=== PATIENT | male | born 1960 | race Caucasian/White ===

== ENCOUNTER → 2016-11-21 | Outpatient (CLI) | payer BC ==
[~2016-11-21] MED LIST: ASPIRIN 32325 MG/TAB PO; DUO-KAPS1 CAP PO; NORCO 325 MG-101 TA1 PO; RITALIN 20M20 MG/TAB PO; SEROQUEL100 MG PO; ZYRTEC10 MG PO
== END ==
LOC: LAB 16:42
DX: F32.9 Major depressive disorder, single episode, unspecified (principal); Z12.5 Encounter for screening for malignant neoplasm of prostate; E78.2 Mixed hyperlipidemia; N52.03 Combined arterial insufficiency and corporo-venous occlusive erectile dysfunction; R20.2 Paresthesia of skin

== ENCOUNTER → 2018-02-08 | Day surgery (SDC) | payer BC ==
[2015-07-27 16:46] VITALS: BP 120/86
== END ==
LOC: MSO 07:36
DX: K29.50 Unspecified chronic gastritis without bleeding (principal); R13.10 Dysphagia, unspecified; Z87.891 Personal history of nicotine dependence
CPT/HCPCS: 00731; A4649; J2704; J7120

== ENCOUNTER → 2018-11-08 | Outpatient (CLI) | payer MEDICARE, BC ==
[~2018-11-08] VITALS: Ht 170.2 cm; Wt 107.6 kg
[~2018-11-08] MED LIST changes: +ADDERALL 20 MG20 MG PO; +BYSTOLIC10 MG PO; +COLACE100 M1 PO; +CYCLOBENZAPRINE10 M1 PO; +EFFEXOR XR75 M2 PO; +FIBER TABS625 MG PO; +FLOMAX0.4 MG PO; +LIDOCAINE1 EACH TP; +MS CONTIN15 MG PO; +PANTOPRAZOLE SO40 MG PO; +REMERON15 MG PO; +TEMAZEPAM PO; +VENLAFAXINE HYD75 MG PO
[2018-11-08 11:53] VITALS: BP 110/72
[2018-11-08 12:10] LABS: ALBUMIN 4.2 g/dL (3.5-5.0); CALCIUM 9.7 mg/dL (8.4-10.2); POTASSIUM 4.5 mmol/L (3.6-5.0); TOTAL BILIRUBIN 0.4 mg/dL (0.2-1.3)
[2018-11-08 13:41] LABS: HEMATOCRIT 44.8 % (42.0-52.0); MEAN CELL VOLUME 95 fl (78-100); MEAN CORPUSCULAR HEMOGLOBIN 32 pg (27-31); MEAN CORPUSCULAR HGB CONC 34 g/dL (33-37); MEAN PLATELET VOLUME 10.8 fl (7.4-10.4); PLATELET COUNT 299 K/mm3 (130-400); RED BLOOD COUNT 4.73 M/mm3 (4.20-5.60); RED CELL DISTRIBUTION WIDTH 12.6 % (11.5-14.5); WHITE BLOOD COUNT 4.9 K/mm3 (4.8-10.8)
[2018-11-08 15:52] LABS: LYMPHOCYTE 34 % (20-51); MONOCYTE 8 % (3-10); NEUTROPHILS 48 % (42-75)
[2018-11-08 16:10] LABS: ERYTHROCYTE SEDIMENTATION RATE 5 mm/hr (0-20)
[2018-11-09 00:02] LABS: TESTOSTERONE 488 ng/dL (221-716)
== END ==
LOC: AMSURD 11:06
PROVIDERS: Internal Medicine
DX: Z12.5 Encounter for screening for malignant neoplasm of prostate (principal); F33.2 Major depressive disorder, recurrent severe without psychotic features; E78.2 Mixed hyperlipidemia; R73.02 Impaired glucose tolerance (oral); I47.1 Supraventricular tachycardia; Q87.89 Other specified congenital malformation syndromes, not elsewhere classified

== ENCOUNTER → 2019-07-04 | Outpatient (CLI) | payer MEDICARE, BC ==
[~2019-07-04] MED LIST changes: +ACETAMINOPHEN-H1 TA1 PO; +ROBAXIN-750750 MG PO
[2019-07-04 14:00] VITALS: BP 159/91
== END ==
LOC: ED 11:32
DX: Z72.89 Other problems related to lifestyle (principal)

== ENCOUNTER → 2020-05-04 | Outpatient (CLI) | payer MEDICARE, BC ==
[2019-07-04 14:00] VITALS: BP 159/91
[2020-05-04 11:59] LABS: HEMATOCRIT 42.5 % (42.0-52.0); HEMOGLOBIN 14.2 g/dL (13.5-18.0); MEAN CELL VOLUME 96 fl (78-100); MEAN CORPUSCULAR HEMOGLOBIN 32 pg (27-31); MEAN CORPUSCULAR HGB CONC 33 g/dL (33-37); MEAN PLATELET VOLUME 9.4 fl (7.4-10.4); PLATELET COUNT 282 K/mm3 (130-400); RED BLOOD COUNT 4.41 M/mm3 (4.20-5.60)
[2020-05-04 12:04] LABS: POTASSIUM 4.6 mmol/L (3.5-5.1)
[2020-05-04 12:05] LABS: CALCIUM 9.2 mg/dL (8.3-10.5)
[2020-05-04 12:06] LABS: TOTAL PROTEIN 6.7 g/dL (6.4-8.3)
[2020-05-04 12:08] LABS: TOTAL BILIRUBIN 0.3 mg/dL (0.2-1.2)
[2020-05-04 12:22] LABS: NEUTROPHILS 59 % (42-75)
[2020-05-04 12:23] LABS: LYMPHOCYTE 25 % (20-51); MONOCYTE 6 % (3-10)
[2020-05-04 12:59] LABS: ERYTHROCYTE SEDIMENTATION RATE 3 mm/hr (0-20)
== END ==
LOC: LAB 11:43
PROVIDERS: Internal Medicine
DX: Z12.5 Encounter for screening for malignant neoplasm of prostate (principal); Z12.11 Encounter for screening for malignant neoplasm of colon; F33.2 Major depressive disorder, recurrent severe without psychotic features; E78.2 Mixed hyperlipidemia; R73.02 Impaired glucose tolerance (oral); Q87.89 Other specified congenital malformation syndromes, not elsewhere classified; R13.10 Dysphagia, unspecified

== ENCOUNTER → 2020-08-22 | Outpatient (CLI) | payer MEDICARE, BC ==
[2019-07-04 14:00] VITALS: BP 159/91
== END ==
LOC: RAD 10:45
DX: M25.512 Pain in left shoulder (principal)

== ENCOUNTER → 2020-08-30 | Outpatient (CLI) | payer MEDICARE, BC ==
[2019-07-04 14:00] VITALS: BP 159/91
== END ==
LOC: RAD 14:50
DX: M75.121 Complete rotator cuff tear or rupture of right shoulder, not specified as traumatic (principal)

== ENCOUNTER → 2020-11-12 | Outpatient (CLI) | payer MEDICARE, BC ==
[2019-07-04 14:00] VITALS: BP 159/91
[~2020-11-12] MED LIST changes: +FAMOTIDINE 1010 MG PO; +PANTOPRAZOLE SO20 M1 PO; +PRILOSEC2.5 MG/Pac PO
== END ==
LOC: LAB 15:54
DX: N40.1 Benign prostatic hyperplasia with lower urinary tract symptoms (principal)

== ENCOUNTER → 2020-12-03 | Outpatient (CLI) | payer MEDICARE, BC ==
[2019-07-04 14:00] VITALS: BP 159/91
== END ==
LOC: AMSURD 09:15
DX: Z01.818 Encounter for other preprocedural examination (principal); J34.2 Deviated nasal septum; J34.3 Hypertrophy of nasal turbinates

== ENCOUNTER 2020-12-05 07:36 | Emergency (ER) | payer MEDICARE, BC ==
[~2020-12-05 07:36] MED LIST changes: -FAMOTIDINE 1010 MG PO; -PANTOPRAZOLE SO20 M1 PO; -PRILOSEC2.5 MG/Pac PO
[2020-12-05] MEDS ORDERED: FAMOTIDINE 1010 MG PO (07:50)
[2020-12-05] MEDS ORDERED: PANTOPRAZOLE SO20 M1 PO (07:51)
[2020-12-05] MEDS ORDERED: PRILOSEC2.5 MG/Pac PO (07:53)
[2020-12-05 09:23] VITALS: BP 126/72
== END 2020-12-05 09:23 | disposition home or self-care (01) ==
LOC: ED 07:36
DX: S22.31XA Fracture of one rib, right side, initial encounter for closed fracture (principal); S01.111A Laceration without foreign body of right eyelid and periocular area, initial encounter; Z90.89 Acquired absence of other organs; Z88.0 Allergy status to penicillin; Z88.1 Allergy status to other antibiotic agents; Z91.040 Latex allergy status; Z79.82 Long term (current) use of aspirin; W01.198A Fall on same level from slipping, tripping and stumbling with subsequent striking against other object, initial encounter; Y92.009 Unspecified place in unspecified non-institutional (private) residence as the place of occurrence of the external cause

== ENCOUNTER → 2020-12-19 | Outpatient (CLI) | payer MEDICARE, BC ==
[2020-12-05 09:23] VITALS: BP 126/72
[~2020-12-19] MED LIST changes: +FAMOTIDINE 1010 MG PO; +PANTOPRAZOLE SO20 M1 PO; +PRILOSEC2.5 MG/Pac PO
[2020-12-19 15:49] LABS: URINE APPEARANCE CLOUDY; URINE BILIRUBIN NEGATIVE (NEGATIVE); URINE BLOOD 50 ery/uL (NEGATIVE); URINE COLOR YELLOW; URINE GLUCOSE NEGATIVE (NEGATIVE); URINE KETONE NEGATIVE (NEGATIVE); URINE LEUKOCYTE ESTERASE 1+ (NEGATIVE); URINE NITRATE POSITIVE (NEGATIVE); URINE PROTEIN(semi-quant) TRACE mg/dL (NEGATIVE); URINE UROBILINOGEN NORMAL (NORMAL); URINE WBC >50 /hpf (0-3)
[2020-12-19 15:50] LABS: URINE MUCUS PRESENT (NOT PRESENT)
== END ==
LOC: LAB 15:09
PROVIDERS: Urology
DX: R39.15 Urgency of urination (principal); R35.0 Frequency of micturition; R30.0 Dysuria

== ENCOUNTER → 2020-12-27 | Outpatient (CLI) | payer MEDICARE, BC ==
[2020-12-05 09:23] VITALS: BP 126/72
[2020-12-27 17:29] LABS: BASO # 0.03 (0.02-0.10); EOS # 0.42 (0.04-0.40); EOS % 5.5 % (0.0-4.0); HEMATOCRIT 42.5 % (42.0-52.0); HEMOGLOBIN 13.9 g/dL (13.5-18.0); LYMPH# 1.91 (1.50-4.00); MEAN CELL VOLUME 96 fl (78-100); MEAN CORPUSCULAR HEMOGLOBIN 31 pg (27-31); MEAN CORPUSCULAR HGB CONC 33 g/dL (33-37); MEAN PLATELET VOLUME 8.9 fl (7.4-10.4); MONO # 0.51 (0.20-0.80); NEU # 4.53 (1.40-6.50); PLATELET COUNT 446 K/mm3 (130-400); RED BLOOD COUNT 4.45 M/mm3 (4.20-5.60); RED CELL DISTRIBUTION WIDTH 13.3 % (11.5-14.5); WHITE BLOOD COUNT 7.6 K/mm3 (4.8-10.8)
[2020-12-27 17:46] LABS: ALBUMIN 3.9 g/dL (3.5-5.0)
[2020-12-27 17:47] LABS: POTASSIUM 4.3 mmol/L (3.5-5.1)
[2020-12-27 17:48] LABS: CALCIUM 9.6 mg/dL (8.3-10.5)
[2020-12-27 17:49] LABS: TOTAL PROTEIN 7.5 g/dL (6.4-8.3)
[2020-12-27 17:51] LABS: TOTAL BILIRUBIN 0.4 mg/dL (0.2-1.2)
== END ==
LOC: LAB 17:16
PROVIDERS: Internal Medicine
DX: N41.0 Acute prostatitis (principal)

== ENCOUNTER → 2021-06-17 | Outpatient (CLI) | payer MEDICARE, BC ==
[2021-06-17 16:56] LABS: BASO # 0.03 K/mm3 (0.02-0.10); EOS # 0.72 K/mm3 (0.04-0.40); EOS % 9.9 % (0.0-4.0); HEMATOCRIT 42.7 % (42.0-52.0); HEMOGLOBIN 14.5 g/dL (13.5-18.0); MEAN CELL VOLUME 95 fl (78-100); MEAN CORPUSCULAR HEMOGLOBIN 32 pg (27-31); MEAN CORPUSCULAR HGB CONC 34 g/dL (33-37); MEAN PLATELET VOLUME 9.9 fl (7.4-10.4); MONO # 0.44 K/mm3 (0.20-0.80); NEU # 4.36 K/mm3 (1.40-6.50); PLATELET COUNT 286 K/mm3 (130-400); RED CELL DISTRIBUTION WIDTH 12.6 % (11.5-14.5); WHITE BLOOD COUNT 7.3 K/mm3 (4.8-10.8)
[2021-06-17 17:02] LABS: ALBUMIN 3.8 g/dL (3.4-4.8); POTASSIUM 4.4 mmol/L (3.5-5.1)
[2021-06-17 17:03] LABS: CALCIUM 9.5 mg/dL (8.3-10.5)
[2021-06-17 17:06] LABS: TOTAL BILIRUBIN 0.3 mg/dL (0.2-1.2)
== END ==
LOC: LAB 16:35
PROVIDERS: Internal Medicine
DX: K90.9 Intestinal malabsorption, unspecified (principal); E78.2 Mixed hyperlipidemia; F33.2 Major depressive disorder, recurrent severe without psychotic features

== ENCOUNTER 2021-07-04 11:35 | Emergency (ER) | payer MEDICARE, BC ==
[2021-07-04 11:40] VITALS: BP 130/78
[2021-07-04 12:22] LABS: BASO # 0.02 K/mm3 (0.02-0.10); EOS # 0.12 K/mm3 (0.04-0.40); EOS % 1.3 % (0.0-4.0); HEMATOCRIT 41.9 % (42.0-52.0); HEMOGLOBIN 14.2 g/dL (13.5-18.0); LYMPH# 1.02 K/mm3 (1.50-4.00); MEAN CELL VOLUME 94 fl (78-100); MEAN CORPUSCULAR HEMOGLOBIN 32 pg (27-31); MEAN CORPUSCULAR HGB CONC 34 g/dL (33-37); MEAN PLATELET VOLUME 9.4 fl (7.4-10.4); MONO # 0.44 K/mm3 (0.20-0.80); NEU # 7.56 K/mm3 (1.40-6.50); PLATELET COUNT 262 K/mm3 (130-400); RED BLOOD COUNT 4.48 M/mm3 (4.20-5.60); RED CELL DISTRIBUTION WIDTH 12.6 % (11.5-14.5); WHITE BLOOD COUNT 9.2 K/mm3 (4.8-10.8)
[2021-07-04 12:37] LABS: POTASSIUM 3.9 mmol/L (3.5-5.1); SODIUM 145 mmol/L (136-145)
[2021-07-04 12:39] LABS: CALCIUM 9.6 mg/dL (8.3-10.5)
[2021-07-04 12:40] LABS: GLUCOSE 112 mg/dL (75-110)
[2021-07-04 12:41] LABS: CARBON DIOXIDE 24 mmol/L (23-31)
[2021-07-04 12:42] LABS: TOTAL BILIRUBIN 0.5 mg/dL (0.2-1.2)
[2021-07-04 12:45] LABS: AST-SGOT 23 U/L (5-34)
[2021-07-04 12:47] LABS: ACETAMINOPHEN 2 ug/mL; ALT/SGPT 27 U/L (0-55)
[2021-07-04 12:48] LABS: ALCOHOL IN-HOUSE < 10 mg/dL (<10)
[2021-07-04 14:29] LABS: URINE APPEARANCE CLEAR; URINE BILIRUBIN NEGATIVE (NEGATIVE); URINE BLOOD NEGATIVE (NEGATIVE); URINE COLOR YELLOW; URINE GLUCOSE NEGATIVE (NEGATIVE); URINE KETONE NEGATIVE (NEGATIVE); URINE LEUKOCYTE ESTERASE NEGATIVE (NEGATIVE); URINE NITRATE NEGATIVE (NEGATIVE); URINE PROTEIN(semi-quant) 1+ mg/dL (NEGATIVE); URINE UROBILINOGEN NORMAL (NORMAL)
[2021-07-04 14:31] LABS: URINE MUCUS PRESENT (NOT PRESENT)
== END 2021-07-04 18:01 ==
LOC: ED 11:35
PROVIDERS: Nurse Practitioner
DX: R45.851 Suicidal ideations (principal); G47.00 Insomnia, unspecified; F90.0 Attention-deficit hyperactivity disorder, predominantly inattentive type; F41.9 Anxiety disorder, unspecified; F32.A Depression, unspecified; K21.9 Gastro-esophageal reflux disease without esophagitis; G89.29 Other chronic pain; M54.9 Dorsalgia, unspecified; M54.2 Cervicalgia; E66.9 Obesity, unspecified; Z79.899 Other long term (current) drug therapy; Z20.822 Contact with and (suspected) exposure to COVID-19

== ENCOUNTER → 2021-07-29 | Outpatient (CLI) | payer MEDICARE, BC ==
[2021-07-29 10:45] LABS: POTASSIUM 4.7 mmol/L (3.5-5.1)
[2021-07-29 10:46] LABS: ALBUMIN 4.2 g/dL (3.4-4.8)
[2021-07-29 10:47] LABS: CALCIUM 9.6 mg/dL (8.3-10.5)
[2021-07-29 10:50] LABS: TOTAL BILIRUBIN 0.6 mg/dL (0.2-1.2)
== END ==
LOC: LAB 10:21
PROVIDERS: Internal Medicine
DX: E78.2 Mixed hyperlipidemia (principal)

== ENCOUNTER → 2021-12-16 | Outpatient (CLI) | payer MEDICARE, BC | LOC: LAB 08:52 | DX: Z12.5 Encounter for screening for malignant neoplasm of prostate (principal); M48.02 Spinal stenosis, cervical region; M48.061 Spinal stenosis, lumbar region without neurogenic claudication; F33.2 Major depressive disorder, recurrent severe without psychotic features; K21.9 Gastro-esophageal reflux disease without esophagitis; F90.0 Attention-deficit hyperactivity disorder, predominantly inattentive type; E78.2 Mixed hyperlipidemia; K90.9 Intestinal malabsorption, unspecified ==

== ENCOUNTER 2022-01-14 09:13 | Outpatient (RCR) | payer MEDICARE, BC | END 2022-01-21 20:56 | LOC: OPPGERO 09:13 | DX: F90.9 Attention-deficit hyperactivity disorder, unspecified type (principal); F41.1 Generalized anxiety disorder; F33.9 Major depressive disorder, recurrent, unspecified; Z98.890 Other specified postprocedural states; Z90.49 Acquired absence of other specified parts of digestive tract; Z90.89 Acquired absence of other organs; Z79.899 Other long term (current) drug therapy ==

== ENCOUNTER → 2022-01-15 | Outpatient (CLI) | payer MEDICARE, BC | LOC: LAB 09:46 | DX: J02.9 Acute pharyngitis, unspecified (principal) ==

== ENCOUNTER 2022-01-22 10:32 | Outpatient (RCR) | payer MEDICARE, BC ==
[2022-02-13] MEDS ORDERED: ACETAMINOPHEN-H1 TA1 PO (18:04)
[2022-02-13] MEDS ORDERED: AMIODARONE200 MG PO (19:15)
== END 2022-02-20 07:30 | disposition still patient (30) ==
LOC: OPPGERO 10:32
DX: F41.8 Other specified anxiety disorders (principal); Z98.890 Other specified postprocedural states; Z90.49 Acquired absence of other specified parts of digestive tract; Z90.89 Acquired absence of other organs

== ENCOUNTER 2022-02-13 17:50 | Emergency (ER) | payer MEDICARE, BC ==
[2022-02-13] MEDS ORDERED: ACETAMINOPHEN-H1 TA1 PO (18:04)
[2022-02-13 18:20] LABS: BASO # 0.03 K/mm3 (0.02-0.10); EOS # 0.56 K/mm3 (0.04-0.40); HEMATOCRIT 40.8 % (42.0-52.0); HEMOGLOBIN 13.8 g/dL (13.5-18.0); LYMPH# 1.86 K/mm3 (1.50-4.00); MEAN CELL VOLUME 95 fl (78-100); MEAN CORPUSCULAR HEMOGLOBIN 32 pg (27-31); MEAN CORPUSCULAR HGB CONC 34 g/dL (33-37); MEAN PLATELET VOLUME 9.9 fl (7.4-10.4); MONO # 0.46 K/mm3 (0.20-0.80); NEU # 3.26 K/mm3 (1.40-6.50); PLATELET COUNT 199 K/mm3 (130-400); RED CELL DISTRIBUTION WIDTH 12.3 % (11.5-14.5); WHITE BLOOD COUNT 6.2 K/mm3 (4.8-10.8)
[2022-02-13 18:32] LABS: POTASSIUM 3.8 mmol/L (3.5-5.1); SODIUM 140 mmol/L (136-145)
[2022-02-13 18:33] LABS: ALBUMIN 4.1 g/dL (3.4-4.8)
[2022-02-13 18:34] LABS: CALCIUM 9.5 mg/dL (8.3-10.5)
[2022-02-13 18:35] LABS: TOTAL PROTEIN 6.8 g/dL (6.2-8.1)
[2022-02-13 18:36] LABS: CARBON DIOXIDE 28 mmol/L (23-31); GLUCOSE 111 mg/dL (75-110)
[2022-02-13 18:37] LABS: TOTAL BILIRUBIN 0.4 mg/dL (0.2-1.2)
[2022-02-13 18:40] LABS: AST-SGOT 37 U/L (5-34)
[2022-02-13 18:43] LABS: ALT/SGPT 51 U/L (0-55)
[2022-02-13 19:04] LABS: TROPONIN-I < 0.030 ng/mL (<0.030)
[2022-02-13 19:09] LABS: URINE APPEARANCE CLEAR; URINE COLOR LIGHT YELLOW
[2022-02-13 19:10] LABS: URINE BILIRUBIN NEGATIVE (NEGATIVE); URINE BLOOD NEGATIVE (NEGATIVE); URINE GLUCOSE NEGATIVE (NEGATIVE); URINE KETONE NEGATIVE (NEGATIVE); URINE LEUKOCYTE ESTERASE TRACE (NEGATIVE); URINE NITRATE NEGATIVE (NEGATIVE); URINE PROTEIN(semi-quant) NEGATIVE (NEGATIVE); URINE UROBILINOGEN NORMAL (NORMAL)
[2022-02-13] MEDS ORDERED: AMIODARONE200 MG PO (19:15)
[2022-02-13 19:25] VITALS: BP 133/79
== END 2022-02-13 19:25 | disposition home or self-care (01) ==
LOC: ED 17:50
PROVIDERS: Family Medicine
DX: I49.9 Cardiac arrhythmia, unspecified (principal); E66.9 Obesity, unspecified; Z20.822 Contact with and (suspected) exposure to COVID-19; Z91.040 Latex allergy status; Z28.310 Unvaccinated for COVID-19
CPT/HCPCS: J7030

== ENCOUNTER → 2022-02-19 | Outpatient (CLI) | payer MEDICARE, BC ==
[~2022-02-19] MED LIST changes: +AMIODARONE200 MG PO
== END ==
LOC: RAD 14:00 → VAS 14:00
DX: I48.91 Unspecified atrial fibrillation (principal)

== ENCOUNTER 2022-02-21 07:50 | Outpatient (RCR) | payer MEDICARE, BC | END 2022-03-21 14:21 | disposition home or self-care (01) | LOC: OPPGERO 07:50 | DX: F33.2 Major depressive disorder, recurrent severe without psychotic features (principal); F90.0 Attention-deficit hyperactivity disorder, predominantly inattentive type; F41.1 Generalized anxiety disorder; F42.9 Obsessive-compulsive disorder, unspecified ==

== ENCOUNTER 2022-03-24 09:34 | Outpatient (RCR) | payer MEDICARE, BC | END 2022-04-23 16:41 | disposition home or self-care (01) | LOC: OPPGERO 09:34 | DX: F41.8 Other specified anxiety disorders (principal) ==

== ENCOUNTER → 2022-06-20 | Outpatient (CLI) | payer MEDICARE, BC ==
[2022-06-20 12:41] LABS: BASO # 0.02 K/mm3 (0.02-0.10); EOS # 0.15 K/mm3 (0.04-0.40); EOS % 2.3 % (0.0-4.0); HEMOGLOBIN 13.9 g/dL (13.5-18.0); LYMPH# 1.35 K/mm3 (1.50-4.00); MEAN CELL VOLUME 97 fl (78-100); MEAN CORPUSCULAR HEMOGLOBIN 33 pg (27-31); MEAN CORPUSCULAR HGB CONC 34 g/dL (33-37); MEAN PLATELET VOLUME 9.7 fl (7.4-10.4); MONO # 0.43 K/mm3 (0.20-0.80); NEU # 4.44 K/mm3 (1.40-6.50); PLATELET COUNT 253 K/mm3 (130-400); RED BLOOD COUNT 4.25 M/mm3 (4.20-5.60); WHITE BLOOD COUNT 6.4 K/mm3 (4.8-10.8)
[2022-06-20 12:49] LABS: ALBUMIN 4.1 g/dL (3.4-4.8); POTASSIUM 4.1 mmol/L (3.5-5.1)
[2022-06-20 12:50] LABS: CALCIUM 9.4 mg/dL (8.3-10.5)
[2022-06-20 12:52] LABS: TOTAL PROTEIN 6.6 g/dL (6.2-8.1)
[2022-06-20 12:53] LABS: TOTAL BILIRUBIN 0.4 mg/dL (0.2-1.2)
== END ==
LOC: LAB 12:21
PROVIDERS: Internal Medicine
DX: M48.061 Spinal stenosis, lumbar region without neurogenic claudication (principal); I48.0 Paroxysmal atrial fibrillation; F33.2 Major depressive disorder, recurrent severe without psychotic features; E78.2 Mixed hyperlipidemia; M48.02 Spinal stenosis, cervical region; K21.9 Gastro-esophageal reflux disease without esophagitis; F90.0 Attention-deficit hyperactivity disorder, predominantly inattentive type; K90.9 Intestinal malabsorption, unspecified

== ENCOUNTER → 2022-06-20 | Outpatient (CLI) | payer MEDICARE, BC | LOC: RAD 12:29 | DX: M50.123 Cervical disc disorder at C6-C7 level with radiculopathy (principal); M54.50 Low back pain, unspecified; Z98.1 Arthrodesis status ==

== ENCOUNTER 2024-01-31 19:26 | Emergency (ER) | payer MEDICARE, BC ==
[~2024-01-31 19:26] MED LIST changes: +HYDROcodone/Acetaminophen 10-325 MG TAB PO ONE
== END 2024-02-01 02:23 | disposition home or self-care (01) ==
LOC: ED 19:26
DX: R07.9 Chest pain, unspecified (principal)